=== PATIENT | male | born 1975 | race Caucasian/White ===

== ENCOUNTER 2018-07-04 11:11 | Emergency (ER) | payer MEDICAID ==
[~2018-07-04] VITALS: Ht 188 cm; Wt 104.5 kg
[2018-07-04] MEDS ORDERED: ASPI-556 PO (11:18)
[2018-07-04] MEDS ORDERED: INDA2.5 PO (11:18)
[2018-07-04 13:23] VITALS: BP 139/79
== END 2018-07-04 13:55 | disposition home or self-care (01) ==
LOC: EMS 11:12
DX: I10 Essential (primary) hypertension (principal); F15.90 Other stimulant use, unspecified, uncomplicated; F17.210 Nicotine dependence, cigarettes, uncomplicated; Z76.0 Encounter for issue of repeat prescription